=== PATIENT | female | born 1985 | race American Indian/Alaskan Native ===

== ENCOUNTER 2020-05-15 10:50 | Outpatient (CLI) | payer BC ==
--- NOTE | 2020-05-15 11:39 | Mammography Report ---
DIGITAL DIAGNOSTIC MAMMOGRAM WITH CAD CONVENTIONAL, 05/15/2020 CLINICAL INFORMATION / INDICATION: RIGHT BREAST PAIN/LUMP TECHNIQUE: Digital bilateral mammographic imaging was performed. Spot compression views were obtaine d. This examination was interpreted with the benefit of Computer-aided Detection analysis. COMPARISON: Baseline. FINDINGS: Breast Density: The breasts are almost entirely fatty. No dominant mass, suspicious calcifications or architectural distortion in either breast. No abnormality is identified on spot compression views of the right breast. An ultrasound technologis t is not available today. IMPRESSION: No mammographic evidence of malignancy. The patient should return for right breast ultras ound to evaluate the right breast lump and pain. Follow up recommendation: Ultrasound BI-RADS Category 0: Incomplete. Needs additional imaging evaluation and/or prior mammograms for susannah little. A "normal" or negative report should not discourage follow up or biopsy of a clinically significant f inding. A written summary of these findings will be mailed to the patient. The patient will be entered into a mammography reporting system which will generate a reminder letter for the patient's next appointmen t at the appropriate interval. According to the [employer], yearly mammograms are recommended starting at age 40 and continuing as long as a woman is in good health. Breast MRI is recommended for women with an miguel roximately 20-25% or greater lifetime risk of breast cancer, including women with a strong family his tory of breast or ovarian cancer and women who have been treated for Hodgkin's disease. Signer Name: Ricky Irvin MD Signed: 05/15/2020 11:34 AM Workstation Name: [email or web address]
== END 2020-05-15 10:51 | disposition home or self-care (01) ==
LOC: SPVWC 10:50
PROVIDERS: ATTEND Surgery
DX: N64.59 Other signs and symptoms in breast (principal)
CPT/HCPCS: 77066